=== PATIENT | female | born 1960 | race Two or more races ===

== ENCOUNTER → 2017-02-02 | Day surgery (SDC) | payer OTHER ==
[~2017-02-02] MED LIST: HYDROmorphone 0.5 MG/0.5 ML Syringe IVPUSH PRN; HYDROmorphone 1 MG/ML Syringe ONE; Labetalol 100 MG/20 ML MDV IVPUSH ONE; Lactated Ringers 1,000 ML IV SCH; Lactated Ringers 1,000 ML ONE; Lidocaine 1% 4 ML ONE; Lidocaine 1%/Sod Bicarbonate in NS 8.4% 1 ML Syringe SCH; Midazolam 1 MG/ML 2 ML SDV ONE; Ondansetron 4 MG/2 ML SDV ONE; Propofol 200 MG/20 ML SDV ONE; Rocuronium 50 MG/5 ML Vial ONE; ceFAZolin 1 GM Vial ONE; fentaNYL 250 MCG/5 ML SDV ONE
--- NOTE | 2017-02-02 09:19 | PCM.CONS ---
H&P History of Present Illness - General Date of Service: 02/02/17 Source of Information: Patient, Provider History Limitations: Reports: No Limitations - History of Present Illness Initial Comments - Free Text/Narative: This is a 56 year old right hand dominant female who comes in after falling while cleaning the corner of a ceiling. Patient states she fell and landed on her left upper extremity. She denies previous pain before this fall and had immediate left elbow and forearm deformity. Patient was seen in the [place] ER where she was found to have a radial shaft fracture with posterior elbow dislocation. - Related Data Allergies/Adverse Reactions: Allergies Allergy/AdvReac Type Severity Reaction Status Date / Time No Known Allergies Allergy Verified 02/02/17 09:35 Home Medications: Home Meds Acetaminophen/HYDROcodone [Reagan 325-5 MG] 1 - 2 tab PO Q6H PRN #40 tablet 02/02 [Rx] Aspirin 325 mg PO BID #84 tablet 02/02/17 [Rx] H&P Review of Systems - Review of Systems: Review Of Systems: ROS reveals no pertinent complaints other than HPI. Exam - Exam Exam: See Below - Exam Physical Exam Comments:: LUE: patient is in a splint, skin is clean dry and intact, no tenderness to palpation of the left clavicle or shoulder or wrist, able to flex and extend the IP joint of the thumb, abduct and adduct the fingers, and oppose thumb with small digit, 2+ distal radial pulse, sensation intact to light touch to the median, ulnar, and radial nerve distribution Consult PN Assessment/Plan Problem List Initiated/Reviewed/Updated: Yes Plan: A: left radial shaft fracture with posterior elbow dislocation now reduced P: At this time I discussed with the patient that this is fracture of necessity through an historical interpreter. I discussed the loss of forearm function if this not reduced. Patient at this time had the risks, benefits, complications, and alternatives discussed and informed consent was obtained. We will plan on open reduction internal fixation of the left radial shaft fracture. Patient will be in a sling for 2 weeks and is to come out of the splint in 2 weeks and start elbow range of motion at that time. It was discussed with the patient that she is to find a doctor in [place] while she is there for the next 4 weeks and that even if she doesn't she is to come out of the splint in 2 weeks and start moving her elbow. She is to do no lifting, pushing, pulling with her left arm until seen by us in 4 weeks.
--- NOTE | 2017-02-02 09:22 | PCM.PREANE ---
Preanesthetic Assessment - Anesthesia/Transfusion/Family Hx Anesthesia History: Prior Anesthesia Without Reaction Family History of Anesthesia Reaction: No Transfusion History: No Prior Transfusion(s) - Review of Systems General: No Symptoms Pulmonary: No Symptoms Cardiovascular: No Symptoms Gastrointestinal: No symptoms Neurological: No Symptoms Other: Reports: None - Physical Assessment NPO Status Date: 02/01/17 NPO Status Time: 00:00 Pulse: 72 O2 Sat by Pulse Oximetry: 100 Respiratory Rate: 16 Blood Pressure: 161/77 Temperature: 36.4 C Height: 1.57 m Weight: 44.996 kg ASA Class: 2 Mental Status: Alert & Oriented x3 Airway Class: Mallampati = 1 Dentition: Reports: Normal Dentition, Dentures ROM/Head Extension: Full Lungs: Clear to auscultation, Normal respiratory effort Cardiovascular: Regular Rate, Regular Rhythm, No Murmurs - Anesthesia Plan Pre-Op Medication Ordered: None - Acknowledgements Anesthesia Type Planned: General Anesthesia Pt an Appropriate Candidate for the Planned Anesthesia: Yes Alternatives and Risks of Anesthesia Discussed w Pt/Guardian: Yes Pt/Guardian Understands and Agrees with Anesthesia Plan: Yes PreAnesthesia Questionnaire - CURRENT (IN HOUSE) MEDS Current Meds: Current Medications Discontinued Medications Bupivacaine HCl (Marcaine 0.25%) Confirm Administered Dose 30 ml .ROUTE .STK- MED ONE Stop: 02/02/17 09:01
[2017-02-02] MEDS: Bupivacaine 0.25% 30 ML SDV ONE ×2 (10:17→11:30)
--- NOTE | 2017-02-02 11:53 | PCM.POSTAN ---
POST ANESTHESIA ASSESSMENT - MENTAL STATUS Mental Status: somnolent - VITAL SIGNS Pulse Rate: 65 SaO2: 96 Resp Rate: 8 Blood Pressure: 153/79 Temperature: 36.4 C - RESPIRATORY Respiratory Status: respiratory rate WNL, airway patent, O2 saturation stable, supplemental oxygen - CARDIOVASCULAR CV Status: pulse rate WNL, blood pressure stable - GASTROINTESTINAL GI Status: no symptoms - PAIN Pain Score: 0 - POST OP HYDRATION Hydration Status: adequate & stable (no anesthesia complications noted)
[2017-02-02] MEDS: Labetalol 100 MG/20 ML MDV IVPUSH ONE ×2 (12:10)
[2017-02-02 14:33] VITALS: BP 167/87
--- NOTE | 2017-02-03 09:03 | CR ---
Left forearm: Multiple fluoroscopic spot views utilizing C-arm device were obtained of the forearm. Study shows reduction of comminuted radial shaft fracture. Placement of plate and screws is noted. Fluoroscopy time given as 31.0 seconds. Impression: 1. Procedural study as described above. Diagnostic code #2
--- NOTE | 2017-02-03 13:00 | PCM.OPNOTE ---
- General Post-Op/Procedure Note Date of Surgery/Procedure: 02/02/17 Operative Procedure(s): open reduction internal fixation of left comminuted radial shaft fracture Pre Op Diagnosis: left comminuted radial shaft fracture with previous posterior elbow dislocation Post-Op Diagnosis: Same Anesthesia Technique: General LMA, Local Primary Surgeon: Nolan Collazo Anesthesia Provider: Kamron Khanna Software Engineer Intern: Julieta Ramirez EBL in mLs: 5 Complications: None Condition: Good
--- NOTE | 2017-02-03 13:40 | OR ---
DATE OF OPERATION: 02/02/2017 SURGEON: Nolan Collazo MD OPERATION PERFORMED: Open reduction and internal fixation, left comminuted radial shaft fracture. PREOPERATIVE DIAGNOSIS: Left comminuted radial shaft fracture at the previous posterior elbow dislocation. POSTOPERATIVE DIAGNOSIS: Left comminuted radial shaft fracture at the previous posterior elbow dislocation. ANESTHESIA: General LMA with local. ANESTHESIA PROVIDER: Kamron Khanna CRNA DEAN OF ADMISSIONS: JACK Pendleton. ESTIMATED BLOOD LOSS: 5 mL. COMPLICATIONS: None. CONDITION: Stable. IMPLANTS: 1. Ames 3.5 mm 8 hole compression plate. 2. A 3.5 mm locking and nonlocking Ames screws. DESCRIPTION OF PROCEDURE: The patient was identified in the preop holding area. Proper site was marked and identified by the surgeon. The patient was taken back to the operating theater. After adequate anesthesia, the left upper extremity sterilely prepped and draped in the usual sterile fashion. OR time-out was performed. The patient received 2 g IV Ancef. At this time, the left upper extremity was exsanguinated and a nonsterile tourniquet was insufflated to 250 mmHg. Standard volar approach of Vasquez that was then done over the mid shaft of the radius. Blunt dissection was taken between the brachioradialis and FCR tendon. Pronator teres was then identified. Fracture site was noted to be just at the distal insertion of the pronator teres. There was noted to be comminution of the fracture. At this time, we were able to get a cortical read for reduction on the rotation. At this time, an 8 hole Ames 3.5 mm compression plate was placed. K-wires were placed direct and a nonlocking screw was placed on both sides of the fracture in compression technique. Next, mix of nonlocking and locking screws were placed on both sides of the construct and was found to have adequate fixation and reduction. At this time, there was noted to be some comminution of the posterior portion of it and the bone fragments were left intact. At this time, it was found to have adequate fixation and reduction on both AP and lateral views. I did make sure that the proximal portion of the plate was on bone to make sure that it was not going to be closed to the PIN nerve. At this time, adequate saline was irrigated through the wound. 3-0 Vicryl was used subcutaneously and a running 4 Monocryl was used for the skin along with Dermabond. The patient was placed in a posterior slab splint. I do want the patient to be out of the posterior slab splint in 2 weeks to start gentle elbow range of motion, so she does not get arthrofibrosis of the elbow. The patient should do no heavy lifting, pushing, or pulling of any kind at the left upper extremity for at least the next 4 weeks. The patient was given this plan and going to follow up in [place] to have it checked when she is there for the next 4 weeks. MARLENI /[id number]
== END | disposition home or self-care (01) ==
LOC: JD.SDS 08:27
PROVIDERS: ATTEND Orthopaedic Surgery
DX: S52.352A Displaced comminuted fracture of shaft of radius, left arm, initial encounter for closed fracture (principal); W18.39XA Other fall on same level, initial encounter; Y93.E9 Activity, other interior property and clothing maintenance; Z79.82 Long term (current) use of aspirin; Z79.899 Other long term (current) drug therapy
CPT/HCPCS: 25515; 76000; 93005; J0690; J1170; J2250; J2405; J3010; J7120; 01740; C1713; J2704; J3490